=== PATIENT | female | born 1990 | race African-American/Black ===

== ENCOUNTER 2017-09-08 17:08 | Inpatient (IN) ==
[2017-09-08 19:22] LABS: Basophils # 0.1 10*3/uL (0.0-0.2); Basophils % 0.3 % (0.0-0.8); Eosinophils % 0.1 % (0.00-10.9); Hemoglobin 10.2 GM/DL (12.0-16.0); Immature Granulocytes % 0.5 %; Immature Granulocytes Absolute 0.08 #; Lymphocytes # 2.4 10*3/uL (1.4-4.0); Lymphocytes % 15.3 % (21.3-54.2); Mean Corpuscular HGB Conc 29.3 GM/DL (32-36); Mean Corpuscular Hemoglobin 19 PG (27-34); Mean Corpuscular Volume 65.8 FL (87-102); Mean Platelet Volume 10.1 FL (9.6-12.0); Monocytes # 1.2 10*3/uL (0.11-0.8); Monocytes % 7.8 % (1.7-12.7); Neutrophils # 11.7 10*3/uL (1.4-7.4); Platelet Count 609 T/CUMM (130-400); Red Blood Count 5.29 MC/CUMM (3.8-5.5); Red Cell Distribution Width 20.9 % (9.3-17.3); White Blood Count 15.4 T/CUMM (4-12)
[2017-09-08 19:23] LABS: Hematocrit 34.8 VOL% (35.7-47.0)
[2017-09-08 19:26] LABS: Calcium 9.5 MG/DL (8.5-10.1); Osmolality,Calculated 275.5 MOS/KG (273-304); Potassium 3.5 MMOL/L (3.5-5.1)
[2017-09-08] MEDS ORDERED: SODIUM CHLORIDE 0.9% 1,000 ML IV STA (19:43)
[2017-09-08] MEDS ORDERED: METOCLOPRAMIDE 10 MG/2 ML VIAL IV STA (19:45)
[2017-09-08 20:47] LABS: Apearance,Urine CLOUDY (Clear); Bilirubin,Urine Small mg/dL (Negative); Blood, Urine Negative (Negative); Glucose,Urine (UA) 50 mg/dL (Negative); Ketones,Urine 80 mg/dL (Negative); Mucus,Urine Many /LPF (Occasional); Nitrite,Urine Negative (Negative); Protein,Urine >=500 MG/DL; RBC,Urine 5 /HPF (0-4); Squamous Epithelial Cell,Urine Many /HPF (0-10); Urine Color Amber (Yellow); Urine Specific Gravity 1.028 (1.001-1.035); WBC,Urine 430 /HPF (0-6)
[2017-09-08] MEDS: DEXTROSE 5% NACL 0.45% 1,000 ML IV SCH (21:15)
[2017-09-08] MEDS: AMPICILLIN INJ 1,000 MG in SODIUM CHLORIDE 0.9% 100 ML IV SCH (21:33)
[2017-09-08] MEDS: PROMETHAZINE 25 MG/1 ML VIAL IM PRN (21:36)
[2017-09-08 22:00] LABS: Thyroid Stimulating Hormone 0.437 uIU/ml (0.358-3.74)
[2017-09-08] MEDS: FAMOTIDINE INJ 40 MG in SODIUM CHLORIDE 0.9% 100 ML IV SCH (22:35)
[2017-09-09] MEDS ORDERED: METOCLOPRAMIDE 10 MG/2 ML VIAL IV SCH
[2017-09-09] MEDS: AMPICILLIN INJ 1,000 MG in SODIUM CHLORIDE 0.9% 100 ML IV SCH ×2 (05:27→15:30)
[2017-09-09] MEDS: DEXTROSE 5% NACL 0.45% 1,000 ML IV SCH ×2 (08:03→18:02)
[2017-09-09] MEDS: PANTOPRAZOLE 40 MG VIAL IV SCH (08:04)
[2017-09-09] MEDS: PROMETHAZINE 25 MG/1 ML VIAL IM PRN ×3 (08:08→21:33)
[2017-09-09] MEDS: FAMOTIDINE INJ 40 MG in SODIUM CHLORIDE 0.9% 100 ML IV SCH ×2 (18:02→22:09)
[2017-09-10] MEDS: AMPICILLIN INJ 1,000 MG in SODIUM CHLORIDE 0.9% 100 ML IV SCH ×3 (00:17→15:46)
[2017-09-10] MEDS: DEXTROSE 5% NACL 0.45% 1,000 ML IV SCH ×2 (03:51→21:01)
[2017-09-10] MEDS: PROMETHAZINE 25 MG/1 ML VIAL IM PRN (06:00)
[2017-09-10] MEDS: PANTOPRAZOLE 40 MG VIAL IV SCH (08:37)
[2017-09-10] MEDS: FAMOTIDINE INJ 40 MG in SODIUM CHLORIDE 0.9% 100 ML IV SCH ×2 (10:11→21:01)
[2017-09-10] MEDS: PYRIDOXINE 50 MG TABLET PO SCH ×2 (15:40→21:02)
[2017-09-11] MEDS: AMPICILLIN INJ 1,000 MG in SODIUM CHLORIDE 0.9% 100 ML IV SCH ×3 (00:08→15:47)
[2017-09-11] MEDS: DEXTROSE 5% NACL 0.45% 1,000 ML IV SCH (05:56)
[2017-09-11] MEDS: PYRIDOXINE 50 MG TABLET PO SCH ×2 (08:42→15:47)
[2017-09-11] MEDS: PANTOPRAZOLE 40 MG VIAL IV SCH (08:45)
[2017-09-11] MEDS: FAMOTIDINE INJ 40 MG in SODIUM CHLORIDE 0.9% 100 ML IV SCH (10:04)
[2017-09-11 11:31] VITALS: BP 131/78
[2017-09-11] MEDS: PROMETHAZINE 25 MG/1 ML VIAL IM PRN (11:44)
== END 2017-09-11 16:10 | disposition home or self-care (01) | DRG 781 ==
LOC: N.ED 17:08 → N.EDINP 19:51 → N.OB 20:48
PROVIDERS: ADMIT Obstetrics & Gynecology; ATTEND Obstetrics & Gynecology

== ENCOUNTER 2017-09-28 08:33 | Observation (INO) ==
[2017-09-28] MEDS ORDERED: METOCLOPRAMIDE 10 MG/2 ML VIAL IM STA (10:19)
[2017-09-28] MEDS ORDERED: SODIUM CHLORIDE 0.9% 1,000 ML IV STA (10:19)
[2017-09-28 10:35] LABS: Apearance,Urine CLOUDY (Clear); Bacteria,Urine Few /HPF (Few); Bilirubin,Urine Small mg/dL (Negative); Blood, Urine Negative (Negative); Glucose,Urine (UA) Negative (Negative); Ketones,Urine 80 mg/dL (Negative); Mucus,Urine Many /LPF (Occasional); Nitrite,Urine Negative (Negative); Protein,Urine 100 MG/DL; RBC,Urine 10 /HPF (0-4); Squamous Epithelial Cell,Urine Many /HPF (0-10); Urine Color Amber (Yellow); WBC,Urine 49 /HPF (0-6)
[2017-09-28] MEDS ORDERED: METOCLOPRAMIDE 10 MG/2 ML VIAL IV STA (10:35)
[2017-09-28] MEDS ORDERED: METOCLOPRAMIDE 10 MG/2 ML VIAL ONE (10:36)
[2017-09-28 11:55] LABS: Thyroid Stimulating Hormone 0.062 uIU/ml (0.358-3.74)
[2017-09-28 11:58] LABS: Albumin 3.6 G/DL (3.4-5.0); Bilirubin,Total 0.5 MG/DL (0.2-1.0); Calcium 9.2 MG/DL (8.5-10.1); Osmolality,Calculated 274.5 MOS/KG (273-304); Potassium 4.4 MMOL/L (3.5-5.1); Total Protein 7.6 G/DL (6.4-8.3)
[2017-09-28 12:09] LABS: Basophils % 0.2 % (0.0-0.8); Eosinophils # 0.1 10*3/uL (0.0-0.87); Eosinophils % 0.5 % (0.00-10.9); Hematocrit 32.3 VOL% (35.7-47.0); Hemoglobin 9.8 GM/DL (12.0-16.0); Immature Granulocytes % 0.4 %; Immature Granulocytes Absolute 0.05 #; Lymphocytes # 2.1 10*3/uL (1.4-4.0); Mean Corpuscular HGB Conc 30.3 GM/DL (32-36); Mean Corpuscular Hemoglobin 20 PG (27-34); Mean Corpuscular Volume 64.9 FL (87-102); Monocytes # 0.7 10*3/uL (0.11-0.8); Monocytes % 6.2 % (1.7-12.7); Neutrophils # 8.5 10*3/uL (1.4-7.4); Neutrophils % 74.7 % (38.7-73.9); Red Blood Count 4.98 MC/CUMM (3.8-5.5); Red Cell Distribution Width 20.8 % (9.3-17.3); White Blood Count 11.4 T/CUMM (4-12)
[2017-09-28 12:12] LABS: Platelet Count 178 T/CUMM (130-400)
[2017-09-28] MEDS ORDERED: FAMOTIDINE 20 MG/2 ML VIAL IV STA (14:10)
[2017-09-28] MEDS ORDERED: PYRIDOXINE 50 MG TABLET PO STA (14:10)
[2017-09-28] MEDS ORDERED: PROMETHAZINE 25 MG/1 ML VIAL IM STA (14:10)
[2017-09-28] MEDS ORDERED: PROMETHAZINE 25 MG/1 ML VIAL ONE (14:15)
[2017-09-28] MEDS ORDERED: FAMOTIDINE 20 MG/2 ML VIAL IV ONE (14:16)
[2017-09-28] MEDS ORDERED: SODIUM CHLORIDE 0.9% 1,000 ML IV SCH (17:30)
[2017-09-28] MEDS ORDERED: PROMETHAZINE 25 MG SUPP RECTAL PRN (20:04)
[2017-09-28] MEDS ORDERED: dimenhyDRINATE 50 MG TABLET PO PRN (20:04)
[2017-09-28] MEDS: LACTATED RINGERS 1,000 ML IV SCH (20:30)
[2017-09-28] MEDS ORDERED: PANTOPRAZOLE 40 MG VIAL IV SCH (21:00)
[2017-09-28] MEDS: PROMETHAZINE 25 MG/1 ML VIAL IM SCH (21:46)
[2017-09-28] MEDS: PYRIDOXINE 50 MG TABLET PO SCH (22:24)
[2017-09-28] MEDS: diphenhydrAMINE CAP 25 MG CAPSULE PO SCH (22:25)
[2017-09-29] MEDS: LACTATED RINGERS 1,000 ML IV SCH (04:53)
[2017-09-29] MEDS: PROMETHAZINE 25 MG/1 ML VIAL IM SCH ×2 (08:00→18:40)
[2017-09-29] MEDS: diphenhydrAMINE CAP 25 MG CAPSULE PO SCH ×2 (10:04→21:32)
[2017-09-29] MEDS: PYRIDOXINE 50 MG TABLET PO SCH ×3 (10:35→21:32)
[2017-09-29] MEDS: PANTOPRAZOLE 40 MG TABLET PO SCH ×2 (10:35→21:33)
[2017-09-30] MEDS: PROMETHAZINE 25 MG/1 ML VIAL IM SCH ×2 (04:08→12:06)
[2017-09-30] MEDS: diphenhydrAMINE CAP 25 MG CAPSULE PO SCH (09:17)
[2017-09-30] MEDS: PYRIDOXINE 50 MG TABLET PO SCH (09:17)
[2017-09-30] MEDS: PANTOPRAZOLE 40 MG TABLET PO SCH (09:17)
[2017-09-30] MEDS ORDERED: ACETAMINOPHEN 325 MG TABLET PO PRN (12:03)
[2017-09-30 12:09] VITALS: BP 126/84
== END 2017-09-30 14:00 | disposition home or self-care (01) ==
LOC: N.EDINP 08:33 → N.ED 08:33 → N.EDINP 19:09 → N.OB 20:03
PROVIDERS: ADMIT Obstetrics & Gynecology; ATTEND Obstetrics & Gynecology

== ENCOUNTER 2018-04-13 17:28 | Inpatient (IN) ==
[2018-04-13] MEDS ORDERED: MEPERIDINE 50 MG/1 ML VIAL IV PRN (17:45)
[2018-04-13] MEDS ORDERED: BUTORPHANOL 2 MG/ML VIAL IV PRN (17:45)
[2018-04-13] MEDS ORDERED: AMPICILLIN INJ 2,000 MG in SODIUM CHLORIDE 0.9% 100 ML IV ONE (17:47)
[2018-04-13] MEDS ORDERED: OXYTOCIN/LR 20 UNIT/1,000 ML BAG IV SCH (18:00)
[2018-04-13] MEDS: LACTATED RINGERS 1,000 ML IV SCH (18:17)
[2018-04-13 18:25] LABS: Basophils % 0.2 % (0.0-0.8); Eosinophils # 0.2 10*3/uL (0.0-0.87); Eosinophils % 1.4 % (0.00-10.9); Hematocrit 31.6 VOL% (35.7-47.0); Hemoglobin 9.5 GM/DL (12.0-16.0); Immature Granulocytes % 0.4 %; Immature Granulocytes Absolute 0.04 #; Lymphocytes # 2.4 10*3/uL (1.4-4.0); Mean Corpuscular HGB Conc 30.1 GM/DL (32-36); Mean Corpuscular Hemoglobin 22 PG (27-34); Mean Corpuscular Volume 72.8 FL (87-102); Mean Platelet Volume 9.7 FL (9.6-12.0); Monocytes % 8.4 % (1.7-12.7); Neutrophils # 7.8 10*3/uL (1.4-7.4); Neutrophils % 68.6 % (38.7-73.9); Platelet Count 363 T/CUMM (130-400); Red Blood Count 4.34 MC/CUMM (3.8-5.5); White Blood Count 11.3 T/CUMM (4-12)
[2018-04-13 18:41] LABS: INR 0.9; PT Patient Result 9.5 SECS; Partial Thromboplastin Time 28.2 SECS (0-40)
[2018-04-13 18:44] LABS: Albumin 2.5 G/DL (3.4-5.0); Bilirubin,Total 0.4 MG/DL (0.2-1.0); Calcium 8.2 MG/DL (8.5-10.1); Osmolality,Calculated 272.8 MOS/KG (273-304); Potassium 3.6 MMOL/L (3.5-5.1); Total Protein 6.8 G/DL (6.4-8.3)
[2018-04-13 19:19] LABS: Anisocytosis 1+; Hypochromasia 2+
[2018-04-13 19:20] LABS: Microcytosis 1+; Ovalocytes Few
[2018-04-13 19:25] LABS: Elliptocytes Few; Tear Drop Cells Few
[2018-04-13] MEDS ORDERED: LABETALOL 200 MG TABLET ONE (21:39)
[2018-04-13] MEDS: AMPICILLIN INJ 1,000 MG in SODIUM CHLORIDE 0.9% 100 ML IV SCH (21:40)
[2018-04-13] MEDS: LABETALOL 200 MG TABLET PO SCH (21:40)
[2018-04-14] MEDS ORDERED: hydrOXYzine HCL 25 MG/1 ML VIAL IM PRN (01:23)
[2018-04-14] MEDS ORDERED: NALOXONE 0.4 MG/ML VIAL IV PRN (01:23)
[2018-04-14] MEDS ORDERED: PROMETHAZINE 25 MG/1 ML VIAL IM ONE (01:23)
[2018-04-14] MEDS ORDERED: ePHEDrine 50 MG/ML AMP IV PRN (01:23)
[2018-04-14] MEDS ORDERED: diphenhydrAMINE 50 MG/1 ML VIAL IV PRN (01:23)
[2018-04-14] MEDS ORDERED: FAMOTIDINE 20 MG/2 ML VIAL IV ONE (01:24)
[2018-04-14] MEDS ORDERED: CITRIC ACID/SODIUM CITRATE 30 ML UDCUP PO ONE (01:24)
[2018-04-14] MEDS ORDERED: fentaNYL 2 MCG/ROPIV 0.2% EPID 100 ML EPIDURAL SCH (01:30)
[2018-04-14] MEDS: AMPICILLIN INJ 1,000 MG in SODIUM CHLORIDE 0.9% 100 ML IV SCH ×2 (01:35→06:49)
[2018-04-14] MEDS ORDERED: LACTATED RINGERS 1,000 ML IV ONE (01:36)
[2018-04-14] MEDS ORDERED: miSOPROStol 200 MCG TABLET ONE (01:43)
[2018-04-14] MEDS ORDERED: TRANEXAMIC ACID 1,000 MG/10 ML VIAL ONE (01:43)
[2018-04-14] MEDS: LACTATED RINGERS 1,000 ML IV SCH (05:45)
[2018-04-14 06:00] LABS: Apearance,Urine CLEAR (Clear); Bilirubin,Urine Negative (Negative); Blood, Urine Negative (Negative); Glucose,Urine (UA) Negative (Negative); Ketones,Urine 5 mg/dL (Negative); Mucus,Urine Few /LPF (Occasional); Nitrite,Urine Negative (Negative); Protein,Urine 30 MG/DL; RBC,Urine 1 /HPF (0-4); Squamous Epithelial Cell,Urine Occasional /HPF (0-10); Urine Color Amber (Yellow); Urine Specific Gravity 1.029 (1.001-1.035); WBC,Urine 1 /HPF (0-6)
[2018-04-14] MEDS ORDERED: OXYTOCIN/LR 20 UNIT/1,000 ML BAG IV ONE ×2 (06:30→11:27)
[2018-04-14] MEDS ORDERED: METHYLERGONOVINE 0.2 MG/1 ML AMP IM ONE (07:15)
[2018-04-14] MEDS ORDERED: ONDANSETRON 4 MG/2 ML VIAL IV PRN (11:27)
[2018-04-14] MEDS ORDERED: BISACODYL 10 MG SUPP RECTAL PRN (11:27)
[2018-04-14] MEDS ORDERED: WITCH HAZEL PADS 100/JAR TOP PRN (11:27)
[2018-04-14] MEDS ORDERED: oxyCODONE/ACETAMINOPHEN 5-325 MG TABLET PO PRN ×2 (11:27)
[2018-04-14] MEDS ORDERED: HYDROCORTISONE 2.5% RECTAL CREAM 30 GM TUBE TOP PRN (11:27)
[2018-04-14] MEDS ORDERED: BENZOCAINE 20%/MENTHOL 0.5% SPRAY 56 GM CAN TOP PRN (11:27)
[2018-04-14] MEDS ORDERED: ACETAMINOPHEN 325 MG TABLET PO PRN (11:27)
[2018-04-14] MEDS: IBUPROFEN 800 MG TABLET PO PRN (16:20)
[2018-04-14] MEDS: LABETALOL 200 MG TABLET PO SCH ×3 (16:30→23:38)
[2018-04-14] MEDS: DOCUSATE SODIUM 100 MG CAPSULE PO SCH (20:17)
[2018-04-15 04:24] LABS: Basophils % 0.3 % (0.0-0.8); Eosinophils # 0.2 10*3/uL (0.0-0.87); Eosinophils % 1.9 % (0.00-10.9); Hematocrit 24.1 VOL% (35.7-47.0); Hemoglobin 7.4 GM/DL (12.0-16.0); Immature Granulocytes % 0.4 %; Immature Granulocytes Absolute 0.05 #; Lymphocytes # 3.2 10*3/uL (1.4-4.0); Lymphocytes % 27.4 % (21.3-54.2); Mean Corpuscular HGB Conc 30.7 GM/DL (32-36); Mean Corpuscular Hemoglobin 23 PG (27-34); Mean Corpuscular Volume 73.3 FL (87-102); Mean Platelet Volume 9.2 FL (9.6-12.0); Monocytes # 0.7 10*3/uL (0.11-0.8); Monocytes % 6.2 % (1.7-12.7); Neutrophils # 7.6 10*3/uL (1.4-7.4); Neutrophils % 63.8 % (38.7-73.9); Platelet Count 250 T/CUMM (130-400); Red Blood Count 3.29 MC/CUMM (3.8-5.5); White Blood Count 11.8 T/CUMM (4-12)
[2018-04-15 04:47] LABS: Hypochromasia Slight; Platelet Estimate Normal; Polychromasia Few
[2018-04-15] MEDS: IBUPROFEN 800 MG TABLET PO PRN ×2 (08:04→18:38)
[2018-04-15] MEDS: LABETALOL 200 MG TABLET PO SCH ×2 (09:02→20:53)
[2018-04-15] MEDS: DOCUSATE SODIUM 100 MG CAPSULE PO SCH ×2 (09:02→20:51)
[2018-04-15] MEDS: MULTIVITAMIN (PRENATAL) TABLET PO SCH (09:02)
[2018-04-15] MEDS: FERROUS SULFATE 325 MG TABLET PO SCH (20:53)
[2018-04-16 07:19] VITALS: BP 135/81
[2018-04-16] MEDS ORDERED: DIPH/TET/ACEL PERT BOOSTER VACCINE 0.5 ML VIAL IM ONE (08:00)
[2018-04-16] MEDS: DOCUSATE SODIUM 100 MG CAPSULE PO SCH (08:44)
[2018-04-16] MEDS: MULTIVITAMIN (PRENATAL) TABLET PO SCH (08:45)
[2018-04-16] MEDS: FERROUS SULFATE 325 MG TABLET PO SCH (08:45)
[2018-04-16] MEDS: LABETALOL 200 MG TABLET PO SCH (08:45)
== END 2018-04-16 11:05 | disposition home or self-care (01) | DRG 797 ==
LOC: N.LDOUT 17:28 → N.LD 17:29 → N.OB 04-14 16:31
PROVIDERS: ADMIT Obstetrics & Gynecology; ATTEND Obstetrics & Gynecology